=== PATIENT | female | born 1980 | race Caucasian/White ===

== ENCOUNTER 2018-12-15 01:39 | Emergency (ER) | payer BC ==
[2018-12-15 02:37] VITALS: BP 134/92
--- NOTE | 2018-12-15 03:01 | ER Document Report ---
ED General - General Chief Complaint: Fainting Stated Complaint: syncope Time Seen by Provider: 12/15/18 02:16 Primary Care Provider: CARI GROVES FNP-C [Primary Care Provider] - Follow up as needed Notes: Patient is a 38-year-old female with a remote history of epilepsy although has not had a seizure in over 12 years who presents due to concerns of a seizure versus syncopal episode. Patient states that she was receiving a tattoo by her at their home. The patient states that she began to feel lightheaded, clammy, like she was about to pass out. States that she asked her to get her something to eat to try to raise her blood sugar. States that shortly after he came back to the room she felt nauseated like she was about to pass out. Her family member at the bedside states that the patient was very pale, diaphoretic and then lost consciousness. They helped lie her down onto the ground and she did not sustain any trauma. They state that within several seconds of her lying flat on the ground she woke up, sat up and asked what had happened. No tonic-clonic activity was noted. Patient states that she feels much better after having something to drink although still feels somewhat queasy and shaky. She overall regards her current symptoms as being quite mild, constant since the episode of syncope. No obvious exacerbating or alleviating factors. She denies any preceding symptoms of chest pain, shortness of breath, headache, focal weakness or numbness. Denies any symptoms currently. Has not seen a primary care physician regarding today's concerns. TRAVEL OUTSIDE OF THE [place] IN LAST 30 DAYS: No - Related Data Allergies/Adverse Reactions: No Known Allergies Allergy (Verified 11/13/18 20:50) Past Medical History - General Information source: Patient - Social History Smoking Status: Current Every Day Smoker Frequency of alcohol use: None Drug Abuse: None Lives with: Spouse/Significant other Family History: Reviewed & Not Pertinent Patient has suicidal ideation: No Patient has homicidal ideation: No Neurological Medical History: Reports: Hx Seizures Renal/ Medical History: Denies: Hx Peritoneal Dialysis Past Surgical History: Reports: Hx Tonsillectomy Review of Systems - Review of Systems Notes: Constitutional: Negative for fever. HENT: Negative for sore throat. Eyes: Negative for visual changes. Cardiovascular: Negative for chest pain. Positive for syncopal episode Respiratory: Negative for shortness of breath. Gastrointestinal: Negative for abdominal pain, vomiting or diarrhea. Genitourinary: Negative for dysuria. Musculoskeletal: Negative for back pain. Skin: Negative for rash. Neurological: Negative for headaches, weakness or numbness. 10 point ROS negative except as marked above and in HPI. Physical Exam - Vital signs Vitals: Temp Pulse Resp BP Pulse Ox 97.7 F 95 20 138/88 H 98 12/15/18 01:54 12/15/18 01:54 12/15/18 01:54 12/15/18 01:54 12/15/18 01:54 Interpretation: Normal Notes: PHYSICAL EXAMINATION: GENERAL: Well-appearing, well-nourished and in no acute distress. HEAD: Atraumatic, normocephalic. EYES: Pupils equal round and reactive to light, extraocular movements intact, sclera anicteric, conjunctiva are normal. ENT: nares patent, oropharynx clear without exudates. Moist mucous membranes. NECK: Normal range of motion, supple without lymphadenopathy LUNGS: Breath sounds clear to auscultation bilaterally and equal. No wheezes rales or rhonchi. HEART: Regular rate and rhythm without murmurs ABDOMEN: Soft, nontender, normoactive bowel sounds. No guarding, no rebound. No masses appreciated. EXTREMITIES: Normal range of motion, no pitting or edema. No cyanosis. NEUROLOGICAL: No focal neurological deficits. Moves all extremities spontaneously and on command. PSYCH: Normal mood, normal affect. SKIN: Warm, Dry, normal turgor, no rashes or lesions noted. Course - Re-evaluation Re-evalutation: 12/15/18 03:01 Presentation of syncope of unclear etiology. Patient normotensive, alert, without focal neurologic deficits at time of arrival. Denies syncope was during exertion. No preceding symptoms of palpitations, chest pain, or shortness of breath. Patient asymptomatic at time of arrival. EKG is without evidence of HCOM, right heart strain, ST changes to suggest ischemia, prolong QTc, delta wave, epsilon wave, or Brugada syndrome. Patient denies any family history of sudden cardiac , personal history of of structural heart disease. Patient denies any symptoms to suggest an acute PE, UT, TAD, SAH, seizure, or acute GI bleed as the etiology of their syncope today. On exam, no murmurs to suggest critical aortic stenosis as possible etiology. Based on overall clinical history, exam findings, vitals, and patients appearance, I feel it is safe for patient to be discharged home at this time with close outpatient follow-up and strict return precautions. Patient is in agreement with this plan, has verbalized indications for return to ED, and questions have been answered. - Vital Signs Vital signs: Temp Pulse Resp BP Pulse Ox 97.7 F 95 16 134/92 H 98 12/15/18 01:54 12/15/18 01:54 12/15/18 03:00 12/15/18 02:15 12/15/18 03:00 - EKG Interpretation by Me Additional EKG results interpreted by me: 12/15/18 04:24 Sinus rhythm, rate 80. No ST elevations or depressions. QTC is 465. Discharge - Discharge Clinical Impression: Syncope Qualifiers: Syncope type: unspecified Qualified Code(s): R55 - Syncope and collapse Condition: Good Disposition: HOME, SELF-CARE Additional Instructions: You were seen today after an episode of passing out. Your EKG here is normal. At this time, we do not feel that your episode of passing out was from any life- threatening cause. Please drink plenty of fluids over the next several days. Return to emergency department if you have any further episodes of syncope, headache, weakness, numbness, chest pain, or shortness of breath. Please follow up closely with your primary care physician. Referrals: CARI GROVES, JORDONC [Primary Care Provider] - Follow up as needed
--- NOTE | 2018-12-15 06:59 | EKG REPORT ---
SEVERITY:- NORMAL ECG - SINUS RHYTHM : Confirmed by: Mila Tan 15-Dec-2018 06:58:50
== END 2018-12-15 03:46 | disposition home or self-care (01) ==
LOC: ER 01:39
DX: R55 Syncope and collapse (principal); F17.200 Nicotine dependence, unspecified, uncomplicated; Z86.69 Personal history of other diseases of the nervous system and sense organs
CPT/HCPCS: 93005; 93010; 99284